=== PATIENT | female | born 1970 | race Caucasian/White ===

== ENCOUNTER 2020-08-10 11:57 | Emergency (ER) | payer OTHER ==
[~2020-08-10] VITALS: Ht 152.4 cm; Wt 54.4 kg
[~2020-08-10 11:57] MED LIST: CELEBREX100 MG PO; CIPRO500 MG PO; COMPLEX B-1001 EACH; FOLGARD TABLET1 EACH; PNEU16DI2
== END 2020-08-10 14:36 | disposition home or self-care (01) ==
LOC: ER
DX: D25.9 Leiomyoma of uterus, unspecified (principal); R10.2 Pelvic and perineal pain